=== PATIENT | male | born 1965 | race Caucasian/White ===

== ENCOUNTER 2021-06-06 22:14 | Emergency (ER) | payer MEDICARE, BC ==
[~2021-06-06] VITALS: Ht 177.8 cm; Wt 81.6 kg
--- NOTE | 2021-06-06 22:25 | NUR ---
PT BIBRA C/O WEAKNESS. PT AAOX4 BREATHING EVENLY AND UNLABORED. PER PT "I HAVE MS, BUT TODAY IT WAS ALITTLE HARDER TO GET AROUND, SO MY DAUGHTER WAS WORRIED" PT ATTACHED TO MONITOR AND POX. LAC 20 INITIATED, BLOOD OBTAINED AND SENT TO LAB. AT BEDSIDE. PT GIVEN BLANKET AND CALL LIGHT WITHIN REACH
[2021-06-06 22:53] LABS: BASOPHILS % (AUTO) 0.3 % (0.0-2.0); EOSINOPHILS % (AUTO) 0.5 % (0.0-6.0); HEMATOCRIT 43 % (39-51); HEMOGLOBIN 14.4 g/dL (13.5-17.5); LYMPHOCYTES # (AUTO) 0.9 K/uL (0.8-4.8); LYMPHOCYTES % (AUTO) 9.2 % (20.0-44.0); MEAN CORPUSCULAR HGB CONC 34 g/dl (31.0-36.0); MEAN CORPUSCULAR VOLUME 93 fL (80-96); MONOCYTES # (AUTO) 0.6 K/uL (0.1-1.30); NEUTROPHILS # (AUTO) 7.9 K/uL (1.8-8.9); PLATELET COUNT (AUTO) 184 K/uL (150-450); RED BLOOD CELL COUNT(AUTO) 4.62 MIL/uL (4.5-6.0); WHITE BLOOD COUNT (AUTO) 9.5 K/uL (4.3-11.0)
[2021-06-06 23:09] LABS: CALCIUM, SERUM 8.7 mg/dL (8.5-10.1); CARBON DIOXIDE 31 mmol/L (21-32); CHLORIDE 104 mmol/L (98-107); CREATININE 1.1 mg/dL (0.6-1.3); GLUCOSE 104 mg/dL (74-106); POTASSIUM 3.4 mmol/L (3.5-5.1); SODIUM SERUM 142 mmol/L (136-145); UREA NITROGEN, BLOOD 8 mg/dL (7-18)
[2021-06-06] MEDS: IV NS 0.9% 1,000 ML BAG IV ONE (23:10)
[2021-06-06 23:14] LABS: ALANINE AMINOTRANSFERASE 26 U/L (12-78); ALKALINE PHOSPHATASE 96 U/L (46-116); ASPARTATE AMINOTRANSFERASE 15 U/L (15-37); BILIRUBIN,DIRECT 0.1 mg/dL (0.0-0.2); BILIRUBIN,TOTAL 0.2 mg/dL (0.2-1.0); TOTAL PROTEIN, SERUM 7.1 g/dL (6.4-8.2)
--- NOTE | 2021-06-06 23:38 | NUR ---
Jed morgan in [facility] - 06/07/21 at 0035 by MARIO DAE SORIANO [phone]
[2021-06-07] MEDS ORDERED: ONDANSETRON HCL/PF 4 MG/2 ML VIAL ONE (00:31)
--- NOTE | 2021-06-07 00:35 | NUR ---
verbal order 4mg zofran ivp. order noted and carried out
--- NOTE | 2021-06-07 00:35 | NUR ---
urine sent to lab
[2021-06-07] MEDS: ONDANSETRON HCL/PF 4 MG/2 ML VIAL IV ONE (00:48)
--- NOTE | 2021-06-07 01:05 | NUR ---
called lab to f/u on urine
[2021-06-07 01:40] LABS: BILIRUBIN,URINE NEGATIVE (NEGATIVE); COLOR,URINE YELLOW (YELLOW); LEUKOCYTE ESTERASE ,URINE SMALL (NEGATIVE); NITRITE, URINE POSITIVE (NEGATIVE); PROTEIN,URINE NEGATIVE (NEGATIVE); UGLUCOSE NEGATIVE (NEGATIVE); UROBILINOGEN,URINE 0.2 EU/dL (0.2)
[2021-06-07] MEDS ORDERED: CIPR500S3 PO (01:49)
[2021-06-07] MEDS: CIPROFLOXACIN HCL 500 MG TABLET PO ONE (02:00)
[2021-06-07 02:07] LABS: BACTERIA,URINE Moderate /HPF (None Seen); SQUAMOUS EPITHELIAL CELL,UR Few /HPF (None Seen); WBC,URINE 21-50 /HPF (0-3)
--- NOTE | 2021-06-07 02:12 | NUR ---
Patient discharged to home in stable condition. Written and verbal after care instructions given. Patient verbalizes understanding of instruction. IV removed. Catheter intact and site benign. Pressure and 4x4 applied to site. No bleeding noted. 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
[2021-06-07] MEDS ORDERED: CIPROFLOXACIN HCL 500 MG TABLET ONE (02:14)
[2021-06-07 07:32] VITALS: BP 123/68
== END 2021-06-07 02:25 | disposition home or self-care (01) ==
LOC: ER 22:29
DX: R53.1 Weakness (principal); R29.6 Repeated falls; G35 Multiple sclerosis; N39.0 Urinary tract infection, site not specified
CPT/HCPCS: 36415; 70450; 71045; 80048; 80076; 81001; 84484; 85025; 85652; 85730; 87086; 93005; 96361; 96374; 99285; J2405; J7030

== ENCOUNTER 2021-08-11 12:05 | Emergency (ER) | payer MEDICARE, BC ==
[~2021-08-11] VITALS: Ht 180.3 cm; Wt 81.6 kg
[~2021-08-11 12:05] MED LIST: CIPR500S3 PO
--- NOTE | 2021-08-11 12:22 | NUR ---
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 STATES FEVER PAST COUPLE DAYS. AFEBRILE CANVAS CUTTER MACHINE. VITALS ARE WITHIN NORMAL LIMITS. PT ATTACHED TO MONITOR
--- NOTE | 2021-08-11 12:22 | NUR ---
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 STATES FEVER PAST COUPLE DAYS. AFEBRILE CREDIT SUPPORT SPECIALIST. VITALS ARE WITHIN NORMAL LIMITS. PT ATTACHED TO MONITOR
[2021-08-11 14:26] LABS: BASOPHILS % (AUTO) 0.6 % (0.0-2.0); EOSINOPHILS % (AUTO) 0.3 % (0.0-6.0); HEMATOCRIT 44 % (39-51); LYMPHOCYTES % (AUTO) 20.1 % (20.0-44.0); MEAN CORPUSCULAR HGB CONC 34 g/dl (31.0-36.0); MEAN CORPUSCULAR VOLUME 92 fL (80-96); MONOCYTES # (AUTO) 0.7 K/uL (0.1-1.30); MONOCYTES % (AUTO) 13.6 % (2.0-12.0); NEUTROPHILS # (AUTO) 3.2 K/uL (1.8-8.9); NEUTROPHILS % (AUTO) 65.4 % (43.0-81.0); PLATELET COUNT (AUTO) 166 K/uL (150-450); RED BLOOD CELL COUNT(AUTO) 4.75 MIL/uL (4.5-6.0); WHITE BLOOD COUNT (AUTO) 4.9 K/uL (4.3-11.0)
[2021-08-11 14:54] LABS: CALCIUM, SERUM 9.3 mg/dL (8.5-10.1); CREATININE 1.3 mg/dL (0.6-1.3); POTASSIUM 3.6 mmol/L (3.5-5.1)
[2021-08-11] MEDS ORDERED: LORAZEPAM 1 MG TABLET PO ONE (16:00)
[2021-08-11] MEDS ORDERED: LORAZEPAM INJ 2 MG/ML VIAL ONE (16:04)
[2021-08-11] MEDS ORDERED: LORAZEPAM 1 MG TABLET ONE (16:05)
--- NOTE | 2021-08-11 16:27 | NUR ---
Patient discharged to home in stable condition. Written and verbal after care instructions given. Patient verbalizes understanding of instruction.
--- NOTE | 2021-08-11 16:27 | NUR ---
Patient discharged to home in stable condition. Written and verbal after care instructions given. Patient verbalizes understanding of instruction.
[2021-08-11 16:28] VITALS: BP 122/81
== END 2021-08-11 16:29 | disposition home or self-care (01) ==
LOC: ER 12:22
DX: U07.1 COVID-19 (principal); R06.00 Dyspnea, unspecified; F41.1 Generalized anxiety disorder; G35 Multiple sclerosis
CPT/HCPCS: 36415; 71045-TC; 80048-TC; 83880; 84484-TC; 85025-TC; 85378-TC; C9803; J2060